=== PATIENT | male | born 1980 | race Caucasian/White ===

== ENCOUNTER 2020-10-31 10:26 | Observation (INO) ==
[~2020-10-31 10:26] MED LIST: diphenhydrAMINE Capsule 25 MG CAP PO SCH
--- NOTE | 2020-10-31 10:52 | Emergency Department Note ---
Impression & Plan Numbness and tingling of right arm, Brain fog, History of TIA (transient ischemic attack) ED Provider Note NAME: VAMSI OLIVAREZ AGE: 40 SEX: M : 1980 ARRIVES VIA: Walk-In INFORMANT: Patient, ED PROVIDER(S): Frankie Andino MD Chief Complaint: Fogginess, numbness HPI: Patient does present with the above complaints that began around 9 AM this morning. The patient states he was driving and felt a "fogginess over him." Patient also describes some decrease sensation in his right upper extremity. Patient does have a prior history of TIAs and does take a baby aspirin daily. No recent falls or trauma. Patient denies any headache chest pains. The patient has had some intermittent shortness of breath on occasion. Patient denies any cough or fever or loss of taste or smell. The patient is vaccinated for Covid. Patient denies any lower extremity swelling. The patient states that it with his prior TIAs he had some tongue numbness and some changes in feeling in his right upper extremity. The patient is right-hand dominant. The patient denies any recent overuse or trauma to the right upper extremity. The patient denies any bowel or bladder incontinence or saddle anesthesia. No history of seizures. Patient denies any alcohol or tobacco use. The patient symptoms have been constant since they began. Patient did present as a stroke alert in triage. ROS: See HPI for pertinent positives and negatives. A total of 10 systems were reviewed and otherwise negative. Past medical history: See below Surgical history: See below Social history: See below Physical Exam: GENERAL: Lying supine in the bed, eyes closed, opens eyes to voice. EYE EXAM: Normal conjunctiva. PERRL, no anisocoria and EOM's grossly intact w/o pain. NECK: Supple, no nuchal rigidity, no adenopathy, non-tender. No signs of meningismus. LUNGS: Clear to auscultation. Normal chest wall mechanics. HEART: NSR, no MRG. ABDOMEN: Abdomen soft, non-tender, normo-active bowel sounds, no masses, no rebound or guarding. BACK: No CVA TTP. SKIN: No rashes and no bruising. UPPER EXTREMITIES: Upper extremities are grossly normal. LOWER EXTREMITIES: Grossly normal, no edema. NEURO EXAM: A&O x3, cranial nerves II-XII grossly intact, normal speech, moves all 4 extremities on command w/o issue. [Good finger to nose, no drift, reported decreased sensation over the posterior ulnar aspect of the right hand. Differential diagnoses: Infection, dehydration, metabolic abnormality, hypo/hyperglycemia, electrolyte disturbance, anemia, hypoxia, cardiac sources, intracerebral event, toxicologic, neurologic, as well as other pathologies. Course: Patient was seen and evaluated the bedside. Full history physical exam was p erformed. EKG interpreted by me Normal sinus rhythm, rate of 85, normal intervals, normal axis, no ST changes. Imaging Studies: See below Cardiac monitoring: An order was placed for continuous cardiac monitoring. The monitor shows a rate of 75 with sinus rhythm. MDM: Patient did present with right upper extremity numbness and tongue numbness. NIH of 1. No focal weakness slurred speech or facial droop. The patient states it is similar to his TIA. Patient does have history of migraine but no visual disturbances or headache. Blood work was unremarkable. CT of the head negative. Patient does have a contrast allergy so angiographies were not ordered. Upon reassessment the patient has had no change in symptoms. I did give the on-call hospitalist Dr. Rothman and the patient was admitted to the medicine service. The patient did take his typical baby aspirin this morning and is on a statin medication which he took last night. Chest x-ray is clear. EKG without obvious arrhythmia. Critical Care: I have personally spent 35 minutes of critical care time in direct management of this patient. This includes bedside care, interpretation of diagnostic studies, and testing, discussion with consultants, patient, and family members, and other require inpatient management activities. This 35 minutes is in excess of all separately billable procedures. Past Med/Surg History Medical History (Updated 10/31/20 @ 12:23 by Frankie Andino MD) Migraine TIA (transient ischemic attack) Surgical History (Updated 10/31/20 @ 12:23 by Frankie Andino MD) No pertinent past surgical history Social History Smoking Status: Never smoker Feels Safe at Home: Yes Results & Data (ED) Vital Signs Vital Signs - 24 hr 10/31/20 10:32 10/31/20 10:48 10/31/20 10:54 Temperature 36.7 C Temperature Source Temporal Artery Scan Pulse Rate 75 85 82 Pulse Rate from SpO2 Sensor 85 83 Respiratory Rate 18 Respiratory Effort / Characteristics Non-Labored Respiratory Depth Normal Blood Pressure 168/105 H 158/96 H Blood Pressure Mean 126 116 Pulse Oximetry 99 98 99 Oxygen Delivery Method Sepsis Recent Fever Within 48 Hours No Sepsis New/Unexplained Change in Mental Status No Sepsis Action Taken by Nursing No Action Required 10/31/20 11:00 10/31/20 11:02 10/31/20 11:13 Temperature Temperature Source Pulse Rate 73 75 73 Pulse Rate from SpO2 Sensor 74 75 73 Respiratory Rate Respiratory Effort / Characteristics Respiratory Depth Blood Pressure 135/74 137/82 Blood Pressure Mean 94 100 Pulse Oximetry 96 96 94 Oxygen Delivery Method Room Air Sepsis Recent Fever Within 48 Hours Sepsis New/Unexplained Change in Mental Status Sepsis Action Taken by Nursing 10/31/20 11:15 10/31/20 11:30 10/31/20 11:45 Temperature Temperature Source Pulse Rate 71 68 71 Pulse Rate from SpO2 Sensor 73 69 72 Respiratory Rate Respiratory Effort / Characteristics Respiratory Depth Blood Pressure 133/81 135/81 132/80 Blood Pressure Mean 98 99 97 Pulse Oximetry 94 93 96 Oxygen Delivery Method Sepsis Recent Fever Within 48 Hours Sepsis New/Unexplained Change in Mental Status Sepsis Action Taken by [facility]sp Medications Current Medication List: was personally reviewed by me Laboratory Data Attestation: I reviewed the patient's lab results. Result diagrams: 10/31/20 10:57 10/31/20 10:57 Lab Results 10/31/20 10/31/20 10/31/20 Range/Units 10:49 10:57 10:57 WBC 6.28 (4.8-10.8) K/uL RBC 5.35 (4.7-6.1) M/uL Hgb 16.5 (14.0-18.0) g/dL Hct 47.2 (42-52) % MCV 88.2 (80-100) fL MCH 30.8 (25-34) pg MCHC 35.0 (32-36) g/dL RDW Std Deviation 40.8 (36.4-46.3) fL RDW Coeff of Sulaiman 12.8 (11.5-14.5) % Plt Count 257 (130-400) K/uL MPV 10.4 (7.4-10.4) fL Immature Gran % (Auto) 0.3 % Neut % (Auto) 62.9 % Lymph % (Auto) 28.0 % Nolan % (Auto) 8.1 % Eos % (Auto) 0.5 % Baso % (Auto) 0.2 % Neut # (Auto) 3.95 (1.4-6.5) K/uL Lymph # (Auto) 1.76 (1.2-3.4) K/uL Nolan # (Auto) 0.51 (0.11-0.59) K/uL Eos # (Auto) 0.03 (0-0.5) K/uL Baso # (Auto) 0.01 (0-0.2) K/uL Immature Gran # (Auto) 0.02 (0.00-0.02) K/uL PT 9.8 (9.0-12.0) Seconds INR 1.0 (0.9-1.1) APTT 25.6 (21.0-31.0) Seconds PTT Ratio 1.0 Sodium (136-145) mmol/L Potassium (3.5-5.1) mmol/L Chloride (98-107) mmol/L Carbon Dioxide (21-32) mmol/L Anion Gap (3-11) BUN (7-18) mg/dl Creatinine (0.6-1.4) mg/dl Est Cr Clr Drug Dosing ml/min Est GFR ( Amer) ml/min Est GFR (Non-Af Amer) ml/min BUN/Creatinine Ratio (10-20) Glucose (70-99) mg/dl POC Glucose 101 H (70-99) mg/dl Calcium (8.5-10.1) mg/dl Magnesium (1.8-2.4) mg/dl Total Bilirubin (0.2-1) mg/dl AST (15-37) U/L ALT (12-78) U/L Alkaline Phosphatase (45-117) U/L Troponin I (0-0.045) ng/ml Total Protein (6.4-8.2) gm/dl Albumin (3.4-5.0) gm/dl Globulin (2.5-4.0) gm/dl Albumin/Globulin Ratio (0.9-2) Blood Type Antibody Screen 10/31/20 10/31/20 Range/Units 10:57 10:57 WBC (4.8-10.8) K/uL RBC (4.7-6.1) M/uL Hgb (14.0-18.0) g/dL Hct (42-52) % MCV (80-100) fL MCH (25-34) pg MCHC (32-36) g/dL RDW Std Deviation (36.4-46.3) fL RDW Coeff of Sulaiman (11.5-14.5) % Plt Count (130-400) K/uL MPV (7.4-10.4) fL Immature Gran % (Auto) % Neut % (Auto) % Lymph % (Auto) % Nolan % (Auto) % Eos % (Auto) % Baso % (Auto) % Neut # (Auto) (1.4-6.5) K/uL Lymph # (Auto) (1.2-3.4) K/uL Nolan # (Auto) (0.11-0.59) K/uL Eos # (Auto) (0-0.5) K/uL Baso # (Auto) (0-0.2) K/uL Immature Gran # (Auto) (0.00-0.02) K/uL PT (9.0-12.0) Seconds INR (0.9-1.1) APTT (21.0-31.0) Seconds PTT Ratio Sodium 139 (136-145) mmol/L Potassium 4.3 (3.5-5.1) mmol/L Chloride 107 (98-107) mmol/L Carbon Dioxide 29 (21-32) mmol/L Anion Gap 3.0 (3-11) BUN 13 (7-18) mg/dl Creatinine 1.16 (0.6-1.4) mg/dl Est Cr Clr Drug Dosing 117.1 ml/min Est GFR ( Amer) 89.5 ml/min Est GFR (Non-Af Amer) 77.2 ml/min BUN/Creatinine Ratio 11.2 (10-20) Glucose 102 H (70-99) mg/dl POC Glucose (70-99) mg/dl Calcium 9.4 (8.5-10.1) mg/dl Magnesium 2.3 (1.8-2.4) mg/dl Total Bilirubin 0.7 (0.2-1) mg/dl AST 26 (15-37) U/L ALT 53 (12-78) U/L Alkaline Phosphatase 44 L (45-117) U/L Troponin I < 0.015 (0-0.045) ng/ml Total Protein 8.0 (6.4-8.2) gm/dl Albumin 4.3 (3.4-5.0) gm/dl Globulin 3.7 (2.5-4.0) gm/dl Albumin/Globulin Ratio 1.2 (0.9-2) Blood Type A Positive Antibody Screen NEGATIVE Imaging Data Radiologist's Impression: Chest X-Ray 10/31/20 10:35 XR chest 1V portable CLINICAL HISTORY: stroke alert COMPARISON STUDY: No previous studies for comparison. FINDINGS: Lung volumes are at the lower limits of normal. There is no pneumothorax or pleural effusion. Note is made of mild cardiomegaly without evidence for pulmonary edema. There is no consolidation. Azygos fissure is incidentally noted. Patient is mildly rotated. IMPRESSION: No acute cardiopulmonary findings. ACT 112: Negative or not required by law. Electronically signed by: Oliver Hernandez M.D. 10/31/2020 11:[address] 10/31/20 10:35 CT SCAN OF THE BRAIN WITHOUT IV CONTRAST CLINICAL HISTORY: Strokelike symptoms. COMPARISON STUDY: No priors. TECHNIQUE: Unenhanced axial CT scan of the brain is performed from the vertex to the skull base. A dose lowering technique was utilized adhering to the principles of ALARA. CT DOSE: 729.78 mGycm FINDINGS: Brain parenchyma: The brain parenchyma is normal in appearance. There is no hemorrhage, mass effect, or evidence of acute territorial ischemia by CT criteria. Purdy-white matter differentiation is preserved. No extra-axial fluid collection is seen. Ventricles, sulci, cisterns: Normal in configuration. Intracranial vasculature: The visualized intracranial vasculature at the skull base is normal in appearance. Calvarium: Unremarkable. Sinuses and mastoids: A 1.4 cm retention cyst is noted in the left maxillary antrum. The remaining visualized paranasal sinuses are clear. The mastoid air cells are well pneumatized. Orbits: The bony orbits are grossly intact. IMPRESSION: There is no hemorrhage, mass effect, or evidence of acute territorial ischemia by CT criteria. ACT 112: Negative or not required by law. Electronically signed by: Sadi Pham M.D. 10/31/2020 11:02 AM Discharge Plan Visit Data Chief Complaint: Neuro Symptoms/Deficit Stated Complaint: NUMBNESS TO RIGHT SIDE OF BODY,DIZZY,MIND CLOUDY ED Provider: Frankie Andino Discharge Problem: Numbness and tingling of right arm, Brain fog, History of TIA (transient ischemic attack) Forms Stand Alone Forms: [facility]
--- NOTE | 2020-10-31 11:03 | CT Scan Report ---
CT SCAN OF THE BRAIN WITHOUT IV CONTRAST CLINICAL HISTORY: Strokelike symptoms. COMPARISON STUDY: No priors. TECHNIQUE: Unenhanced axial CT scan of the brain is performed from the vertex to the skull base. A d ose lowering technique was utilized adhering to the principles of ALARA. CT DOSE: 729.78 mGycm FINDINGS: Brain parenchyma: The brain parenchyma is normal in appearance. There is no hemorrhage, mass effect, or evidence of acute territorial ischemia by CT criteria. Purdy-white matter differentiation is preser clement. No extra-axial fluid collection is seen. Ventricles, sulci, cisterns: Normal in configuration. Intracranial vasculature: The visualized intracranial vasculature at the skull base is normal in appe arance. Calvarium: Unremarkable. Sinuses and mastoids: A 1.4 cm retention cyst is noted in the left maxillary antrum. The remaining vi sualized paranasal sinuses are clear. The mastoid air cells are well pneumatized. Orbits: The bony orbits are grossly intact. IMPRESSION: There is no hemorrhage, mass effect, or evidence of acute territorial ischemia by CT james kingsley. ACT 112: Negative or not required by law. Electronically signed by: Sadi Pham M.D. 10/31/2020 11:02 AM
[2020-10-31 11:08] LABS: Basophils # (auto) 0.01 K/uL (0-0.2); Basophils % (auto) 0.2 %; Eosinophils # (auto) 0.03 K/uL (0-0.5); Eosinophils % (auto) 0.5 %; Hematocrit (blood only) 47.2 % (42-52); Hemoglobin 16.5 g/dL (14.0-18.0); Immature Granulocytes # (auto) 0.02 K/uL (0.00-0.02); Immature Granulocytes % (auto) 0.3 %; Lymphocytes # (auto) 1.76 K/uL (1.2-3.4); Mean Corpuscular Hemoglobin 30.8 pg (25-34); Mean Corpuscular Volume 88.2 fL (80-100); Mean Platelet Volume 10.4 fL (7.4-10.4); Monocytes # (auto) 0.51 K/uL (0.11-0.59); Monocytes % (auto) 8.1 %; Neutrophils # (auto) 3.95 K/uL (1.4-6.5); Neutrophils % (auto) 62.9 %; Platelet Count 257 K/uL (130-400); RDW Coefficient of Variation 12.8 % (11.5-14.5); RDW Standard Deviation 40.8 fL (36.4-46.3); Red Blood Count 5.35 M/uL (4.7-6.1); White Blood Count 6.28 K/uL (4.8-10.8)
[2020-10-31 11:18] LABS: Partial Thromboplastin Time 25.6 Seconds (21.0-31.0); Prothrombin Time 9.8 Seconds (9.0-12.0)
[2020-10-31 11:24] LABS: Alanine Aminotransferase 53 U/L (12-78); Albumin Level 4.3 gm/dl (3.4-5.0); Aspartate Aminotransferase 26 U/L (15-37); BUN Creatinine Ratio 11.2 (10-20); Blood Urea Nitrogen 13 mg/dl (7-18); Calcium 9.4 mg/dl (8.5-10.1); Carbon Dioxide 29 mmol/L (21-32); Chloride 107 mmol/L (98-107); Creatinine Clr Calc Pharmacy 117.1 ml/min; Est GFR (African American) 89.5 ml/min; Est GFR (Non-African American) 77.2 ml/min; Glucose 102 mg/dl (70-99); Magnesium 2.3 mg/dl (1.8-2.4); Potassium 4.3 mmol/L (3.5-5.1); Sodium 139 mmol/L (136-145)
[2020-10-31 11:29] LABS: Albumin Globulin Ratio 1.2 (0.9-2); Alkaline Phosphatase 44 U/L (45-117); Bilirubin,Total 0.7 mg/dl (0.2-1); Globulin 3.7 gm/dl (2.5-4.0); Troponin I < 0.015 ng/ml (0-0.045)
--- NOTE | 2020-10-31 11:46 | XRay Report ---
XR chest 1V portable CLINICAL HISTORY: stroke alert COMPARISON STUDY: No previous studies for comparison. FINDINGS: Lung volumes are at the lower limits of normal. There is no pneumothorax or pleural effusio n. Note is made of mild cardiomegaly without evidence for pulmonary edema. There is no consolidation. Azygos fissure is incidentally noted. Patient is mildly rotated. IMPRESSION: No acute cardiopulmonary findings. ACT 112: Negative or not required by law. Electronically signed by: Oliver Hernandez M.D. 10/31/2020 11:45 AM
--- NOTE | 2020-10-31 13:09 | History & Physical Report ---
Date of Service October 31, 2020 Assessment & Plan (1) Stroke: Stroke vs TIA - NIH 1- not tPA candidate second to time and NIH score - MRI/MRA head/brain and neck pending at this time - Incidentally noted to have COVID-19- ? inciting event - Continue ASA - Adjust statin in morning pending lipid panel - Bedside swallow screen passed - ECHO - Neurology consulted - PT/OT (2) COVID-19: Asymptomatic, no fevers, no dyspnea, not on oxygen- - Continue supportive measures - CVA needs to be ruled in or out prior to adjusting his VTE hypercoagulability risk - CRP, Fibrinogen, Ferritin for morning lab - No oxygen at this time, self rotation. (3) HLD (hyperlipidemia): As above, continue pravastatin 40 mg (4) HTN (hypertension): Hold PO medications including metoprolol - allow permissive HTN (5) Stomach ulcer: Patient reports some naseem in the past in which he had a EGD done that did not report any active bleeding, but they are following 3 areas - He was to have a repeat EGD in the near future - Battles with some constipation and Nausea - Continue PPI and carfate (6) DVT prophylaxis: Heparin 5000 units q12 until CVA ruled out SCDs ambulate in room History of Present Illness Primary Care Provider: NO PCP 40 YOM with past medical history of HTN, HLD, obesity, fatty liver, migraine, and TIA. Patient drove himself to the emergency room. [place] on [place] way to [place] this morning and around 0800 he started to experiencing "brain feeling foggy", and started noticing some tingling in to his right side of his face and tongue. This progressed to numbness. He was going to just go home, but then he started feeling the numbness in his right arm and his right leg. Patient was seen in the Emergency room and was stroke alerted in triage. Initial NIH was reported as 1, he had a CT scan of the head performed. No angiographies performed secondary to iodinated contrast allergy. He was deemed not a tPA candidate and the hospitalist service was notified. Incidentally during admitting process he was found to have a (+) COVID test. He received 1 dose of his vaccine in September. The patient continues to feel his numbness and tingling to his right side, his sensation to pin-prick is decreased on the right side: circumferentially up to knee on lower; decrease to pin prick to his right upper arm, circumferential, he also has some mild weakness to the right side. He will be admitted to continue his stroke work-up, he will get MRI/MRA of the head and neck for his CVA. Patient has had a CT scan with contrast in the past and despite pre- treatment with prednisone, famotidine, and Benadryl protocol, he reports that he had a breakthrough reaction. For his migraines, he normally gets an aura with these and has never had a debilitating migraine. He reports he hasn't had a migraine in a couple of years and is not on any abortive medications. He is being followed for benign liver lesions and fatty liver, work-up with PCP for iron deficiency anemia and melena. He is normally seen by [facility]. Allergies Allergy/AdvReac Type Severity Reaction Status Date / Time Iodinated Contrast Media Allergy Severe Anaphylaxis Unverified 10/31/20 13:42 amoxicillin Allergy Intermediate Hives Unverified 10/31/20 13:42 iodine Allergy Intermediate Throat Unverified 10/31/20 13:42 Swelling Home Medications Medication Instructions Recorded Confirmed Type Gi Cocktail 5 ml PO BID PRN 10/31/20 10/31/20 History amlodipine 10 mg PO QAM 10/31/20 10/31/20 History aspirin 81 mg PO QAM 10/31/20 10/31/20 History cholecalciferol (vitamin D3) 100 mcg PO PM 10/31/20 10/31/20 History [Vitamin D3] cyanocobalamin (vitamin B-12) 100 mcg PO PM 10/31/20 10/31/20 History [Vitamin B-12] diphenhydramine HCl [Benadryl] 50 mg PO Q6H PRN 10/31/20 10/31/20 History famotidine [Pepcid] 40 mg PO HS 10/31/20 10/31/20 History fluticasone propionate [Flonase 2 spray INTRANASAL BID PRN 10/31/20 10/31/20 History Allergy Relief] hyoscyamine sulfate 0.25 mg PO TID 10/31/20 10/31/20 History losartan 50 mg PO BID 10/31/20 10/31/20 History metoprolol succinate 25 mg PO BID 10/31/20 10/31/20 History multivit,calc,dlj-BG-G4-lycop 1 tab PO PM 10/31/20 10/31/20 History [One-A-Day Men's Complete] ondansetron 4 mg PO Q6H PRN 10/31/20 10/31/20 History pantoprazole 40 mg PO BID 10/31/20 10/31/20 History pravastatin 40 mg PO HS 10/31/20 10/31/20 History prochlorperazine maleate 10 mg PO TID PRN 10/31/20 10/31/20 History [Compazine] sucralfate [Carafate] 1 g PO TIDM 10/31/20 10/31/20 History venlafaxine [Effexor XR] 75 mg PO BID 10/31/20 10/31/20 History Past Med/Surg History Medical History (Updated 10/31/20 @ 20:38 by JAIME Elena) Fatty liver HLD (hyperlipidemia) HTN (hypertension) Liver lesion Migraine Stomach ulcer TIA (transient ischemic attack) Surgical History (Updated 10/31/20 @ 13:37 by JAIME Elena) History of esophagogastroduodenoscopy (EGD) No pertinent past surgical history Family History (Updated 10/31/20 @ 13:41 by JAIME Elena) Other COPD (chronic obstructive pulmonary disease) Cancer Coronary heart disease Dyslipidemia Hypertension Social History Smoking Status: Never smoker Feels Safe at Home: Yes Review of Systems Review of Systems: REVIEW OF SYSTEMS: Constitutional: No fever, sweats or chills Eyes: No diplopia, no worsening or blurred vision ENT: normal hearing, no trouble swallowing Respiratory: No cough, sputum, dyspnea at rest or on exertion Cardiovascular: No chest pain, tightness or palpitations Abdomen: No pain, nausea, vomiting, diarrhea or constipation Musculoskeletal: (+) weakness, No joint pain, calf pain, swelling Neurologic: (+) numbness/tingling, or (+) balance problems Psychiatric: No anxiety or depression Skin: No rash or itch Physical Exam Physical Exam: PHYSICAL EXAM: General: awake, alert, no apparent distress Head: Normocephalic, atraumatic ENT: PERRL, EOMI, no pharyngeal exudate, mucous membranes moist Neuro: NIH-1 AAO x 3, speech clear and appropriate, PEERLA, no vision deficits, right upper and lower extremities 4/5, left upper and lower extremities 3/5, sensation decreased on the right side circumferential to upper outer chest and on lower extremity to just below the knee. No coordination deficits, and no ataxia. Normal Babinski, and no clonus. No facial asymmetry or dysarthria/aphasia. Chest: equal rise and fall of the chest, no accessory muscle use, no heaves or thrills, Clear to auscultation, on room air, Cardiac: Regular rate and rhythm, telemetry reviewed, skin warm dry, cap refill <3 seconds, peripheral pulses +2 no JVD, no murmur, no edema GI: NABS x 4 quadrants, soft, nontender to palpation, no rebound, guarding or tenderness : Spontaneously voiding, no pain, no CVA tenderness, Extremities: Normal inspection, calfs nontender to palpation Psych: Normal mood and affect Skin: no rash or erythema Results & Data Results & Data ([facility]) Vital Signs (Past 12 Hours) Vital Signs Temp Pulse Resp BP Pulse Ox 10/31/20 11:45 71 132/80 96 10/31/20 11:30 68 135/81 93 10/31/20 11:15 71 133/81 94 10/31/20 11:13 73 137/82 94 10/31/20 11:02 75 135/74 96 10/31/20 11:00 73 96 10/31/20 10:54 82 99 10/31/20 10:48 85 158/96 H 98 10/31/20 10:32 36.7 C 75 18 168/105 H 99 Laboratory Results Abnormal lab results 10/31/20 10/31/20 Range/Units 10:49 10:57 Glucose 102 H (70-99) mg/dl POC Glucose 101 H (70-99) mg/dl Alkaline Phosphatase 44 L (45-117) U/L Diagnostic Findings Chest X-Ray 10/31/20 10:35 XR chest 1V portable CLINICAL HISTORY: stroke alert COMPARISON STUDY: No previous studies for comparison. FINDINGS: Lung volumes are at the lower limits of normal. There is no pneumothorax or pleural effusion. Note is made of mild cardiomegaly without evidence for pulmonary edema. There is no consolidation. Azygos fissure is incidentally noted. Patient is mildly rotated. IMPRESSION: No acute cardiopulmonary findings. ACT 112: Negative or not required by law. Electronically signed by: Oliver Hernandez M.D. 10/31/2020 11:[address] 10/31/20 10:35 CT SCAN OF THE BRAIN WITHOUT IV CONTRAST CLINICAL HISTORY: Strokelike symptoms. COMPARISON STUDY: No priors. TECHNIQUE: Unenhanced axial CT scan of the brain is performed from the vertex to the skull base. A dose lowering technique was utilized adhering to the principles of ALARA. CT DOSE: 729.78 mGycm FINDINGS: Brain parenchyma: The brain parenchyma is normal in appearance. There is no hemorrhage, mass effect, or evidence of acute territorial ischemia by CT criteria. Purdy-white matter differentiation is preserved. No extra-axial fluid collection is seen. Ventricles, sulci, cisterns: Normal in configuration. Intracranial vasculature: The visualized intracranial vasculature at the skull base is normal in appearance. Calvarium: Unremarkable. Sinuses and mastoids: A 1.4 cm retention cyst is noted in the left maxillary antrum. The remaining visualized paranasal sinuses are clear. The mastoid air cells are well pneumatized. Orbits: The bony orbits are grossly intact. IMPRESSION: There is no hemorrhage, mass effect, or evidence of acute territorial ischemia by CT criteria. Electronically signed by: Sadi Pham M.D. 10/31/2020 11:02 AM Medications Administered Active Medications Aspirin (Aspirin 81 Mg Ectab) 81 mg PO QAM [facility] Stop: 12/01/20 08:59 Active Medications Aspirin (Aspirin 81 Mg Ectab) 81 mg PO QAM [facility] Stop: 12/01/20 08:59 ECG Additional Comments: Normal sinus rhythm Nonspecific T wave abnormality Abnormal ECG Code Status & VTE Plan Code Status CODE: FULL VTE: heparin 5000 TID VTE Prophylaxis Plan VTE Prophylaxis will be ordered: Yes Supervising Physician Co-Signing Physician Notes Patient was seen and examined independently I discussed the case with Ac SANDOVAL I reviewed pertinent past medical social family history and also the plan of care and agree with the plan of care. Patient presented with nondescript neurological symptoms of "brain fog" and some right-sided weakness. Incidentally he is found to be Covid positive. Retrospectively the patient may have had some loss of taste or smell few weeks prior to presentation. He has no pulmonary symptoms at present and he is 94% on room air greater with his oxygenation. 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 I did see the patient emergency department his hand and foot weakness are slight if any he has no dysmetria he had no changes in his speech Continue with stroke work-up versus atypical migraine incidental Covid diagnosis will be kept with isolation not initiating any steroids at this time Any exceptions will be noted below PG Care Time/CCT Total # of Minutes Spent Total Time Spent with Patient: Total time spent is greater than 50% in coordination of care (as documented) at patient's floor/unit and/or counseling patient: Coding Level of Care Code 09566 Initial Inpt Care Lvl 3 Diagnoses Stroke I63.9 CVA mechanism: unspecified COVID-19 U07.1 HLD (hyperlipidemia) E78.5 Hyperlipidemia type: unspecified HTN (hypertension) I10 Hypertension type: unspecified Stomach ulcer K25.7 Gastric ulcer chronicity: chronic Gastric ulcer complication status: without hemorrhage or perforation DVT prophylaxis Z29.9 (1) HLD (hyperlipidemia) Hyperlipidemia type: unspecified Qualified Code(s): E78.5 - Hyperlipidemia, unspecified (2) Stomach ulcer Gastric ulcer chronicity: chronic Gastric ulcer complication status: without hemorrhage or perforation Qualified Code(s): K25.7 - Chronic gastric ulcer without hemorrhage or perforation (3) HTN (hypertension) Hypertension type: unspecified Qualified Code(s): I10 - Essential (primary) hypertension (4) Stroke CVA mechanism: unspecified Qualified Code(s): I63.9 - Cerebral infarction, unspecified
[2020-10-31] MEDS ORDERED: PERFLUTREN LIPID MICROSPHERE (DEFINITY) IV ONE (15:04)
--- NOTE | 2020-10-31 16:25 | XCELERA ---
[id number] \\[id number]
[2020-10-31] MEDS ORDERED: predniSONE 50 MG TAB PO SCH (18:00)
[2020-10-31] MEDS ORDERED: SUCRALFATE 1 GM TAB PO SCH (18:20)
[2020-10-31] MEDS ORDERED: FLUTICASONE PROPIONATE NA SPR 16 GM BTL PRN (18:20)
[2020-10-31] MEDS ORDERED: PHARMACIST DISCHARGE MED REC CONSULT PRN (18:20)
[2020-10-31] MEDS ORDERED: POLYETHYLENE (MIRALAX) 17 GM PACK PO PRN (18:20)
[2020-10-31] MEDS ORDERED: ONDANSETRON INJ 2 MG/ML 2 ML VIAL IV PRN (18:20)
--- NOTE | 2020-10-31 18:41 | Electrocardiogram Report ---
Test Reason : Blood Pressure : / mmHG Vent. Rate : 085 BPM Atrial Rate : 085 BPM P-R Int : 148 ms QRS Dur : 092 ms QT Int : 364 ms P-R-T Axes : 007 052 012 degrees QTc Int : 433 ms Normal sinus rhythm Nonspecific T wave abnormality Abnormal ECG No previous ECGs available Confirmed by Yao Quiroga ([id number]) on 10/31/2020 6:40:52 PM Referred By: Confirmed By:Kelvin Quiroga
[2020-10-31] MEDS: SUCRALFATE 1 GM TAB PO SCH ×2 (20:07→23:53)
[2020-10-31] MEDS: HEPARIN SOD 5,000 UNIT/0.5 ML VIAL SQ SCH (20:09)
[2020-10-31] MEDS: PANTOprazole 40 MG TAB PO SCH (20:10)
[2020-10-31] MEDS: ACETAMINOPHEN 325 MG TAB PO PRN (20:11)
[2020-10-31] MEDS: VENLAFAXINE HCL XR 75 MG CAPXR PO SCH (20:12)
[2020-10-31] MEDS ORDERED: ALUMINUM/MAGNESIUM SUSP 72 ML, LIDOCAINE VISCOUS 2% SOLN 24 ML, BARCODE IDENTIFIER 1 EACH PO PRN (20:52)
[2020-10-31] MEDS ORDERED: CYANOCOBALAMIN (B-12) 100 MCG TABLET PO SCH (21:00)
[2020-10-31] MEDS ORDERED: PRAVASTATIN SOD 40 MG TAB PO SCH (21:00)
[2020-10-31] MEDS ORDERED: FAMOTIDINE 40 MG TABLET PO SCH (21:00)
[2020-10-31] MEDS ORDERED: HYOSCYAMINE SULFATE 0.125 MG TAB PO SCH (21:00)
[2020-10-31 21:28] LABS: Fibrinogen 421 mg/dl (184-400)
[2020-10-31] MEDS ORDERED: GADOBUTROL 65ML VIAL IV ONE (23:29)
[2020-11-01] MEDS ORDERED: predniSONE 50 MG TAB PO SCH (02:00)
[2020-11-01] MEDS ORDERED: diphenhydrAMINE Capsule 25 MG CAP PO SCH (05:00)
[2020-11-01] MEDS ORDERED: FAMOTIDINE 20 MG TAB PO SCH (05:00)
--- NOTE | 2020-11-01 07:14 | Magnetic Resonance Report ---
MR ANGIOGRAM OF THE NECK COMBO CLINICAL HISTORY: Strokelike symptoms. COMPARISON STUDY: No priors. TECHNIQUE: Axial 3-D [id number] MR angiography of the neck is performed. Subsequently, following the IV administration of 14 cc of Gadavist. Coronal MR angiogram of the neck was performed to corrobo rate the findings. 3-D reformats are created and assessed. All measurements were calculated based on NASCET criteria. FINDINGS: Visualized portions of the thoracic aorta are normal in caliber. The aortic arch demonstrat es standard 3-vessel anatomy. The subclavian arteries are widely patent bilaterally. The right common carotid artery is widely patent, as are the right internal and external carotid arteries. The left c ommon carotid artery is widely patent, as are the left internal and external carotid arteries. The ve rtebral arteries are widely patent. The right vertebral artery is dominant. The visualized intracrani al vessels at the skull base appear patent. IMPRESSION: Normal MR angiogram of the neck. ACT 112: Negative or not required by law. Electronically signed by: Sadi Pham M.D. 11/01/2020 7:13 AM
[2020-11-01 07:36] LABS: Basophils # (auto) 0.01 K/uL (0-0.2); Basophils % (auto) 0.2 %; Eosinophils # (auto) 0.07 K/uL (0-0.5); Eosinophils % (auto) 1.1 %; Hematocrit (blood only) 46.2 % (42-52); Immature Granulocytes # (auto) 0.02 K/uL (0.00-0.02); Immature Granulocytes % (auto) 0.3 %; Lymphocytes # (auto) 1.72 K/uL (1.2-3.4); Lymphocytes % (auto) 26.7 %; Mean Corpuscular Hemoglobin 30.5 pg (25-34); Mean Corpuscular Hgb Conc 34.6 g/dL (32-36); Mean Platelet Volume 10.5 fL (7.4-10.4); Monocytes % (auto) 7.8 %; Neutrophils # (auto) 4.11 K/uL (1.4-6.5); Neutrophils % (auto) 63.9 %; Platelet Count 228 K/uL (130-400); RDW Coefficient of Variation 12.7 % (11.5-14.5); RDW Standard Deviation 40.4 fL (36.4-46.3); Red Blood Count 5.25 M/uL (4.7-6.1); White Blood Count 6.43 K/uL (4.8-10.8)
--- NOTE | 2020-11-01 08:03 | Magnetic Resonance Report ---
MR brain wo con HISTORY: 40 years-old Male stroke work up, allergy to iodinated contrast acute strokelike symptoms COMPARISON: Head CT of same day TECHNIQUE: Multiplanar multisequence MRI of the brain was obtained without the use of IV contrast. FINDINGS: Construction Laborer localizer images demonstrate no gross extracranial abnormality. No restricted diffusion to sugg est acute or subacute infarct. No pathologic blooming artifact. There is no acute intracranial hemorr warren, midline shift, abnormal extra-axial collection, hydrocephalus or intracranial mass. Signal with in the brain parenchyma is within normal limits. The cerebral venous sinuses and major arterial flow voids are patent. Small mastoid effusions. The paranasal sinuses are clear. The skull, orbits and sof t tissues are unremarkable. IMPRESSION: No acute intracranial abnormality, specifically there is no acute or subacute infarct. ACT 112: Negative or not required by law. The above report was generated using voice recognition software. It may contain grammatical, syntax o r spelling errors. Electronically signed by: Higinio Moura M.D. 11/01/2020 8:01 AM
[2020-11-01 08:09] LABS: BUN Creatinine Ratio 11.7 (10-20); Calcium 9.4 mg/dl (8.5-10.1); Creatinine Clr Calc Pharmacy 121.6 ml/min; Est GFR (African American) 94.4 ml/min; Est GFR (Non-African American) 81.5 ml/min; Magnesium 2.3 mg/dl (1.8-2.4); Potassium 3.8 mmol/L (3.5-5.1)
[2020-11-01 08:13] LABS: Ferritin 69.3 ng/ml (8-388)
[2020-11-01 08:17] LABS: C Reactive Protein 0.85 mg/dl (0-0.29)
[2020-11-01 08:26] LABS: Estimated Average Glucose 91 mg/dl; Hemoglobin A1C 4.8 % (4.5-5.6)
[2020-11-01] MEDS: SUCRALFATE 1 GM TAB PO SCH ×2 (08:48→12:37)
[2020-11-01] MEDS: VENLAFAXINE HCL XR 75 MG CAPXR PO SCH (08:49)
[2020-11-01] MEDS: PANTOprazole 40 MG TAB PO SCH (08:49)
[2020-11-01] MEDS: HEPARIN SOD 5,000 UNIT/0.5 ML VIAL SQ SCH (08:50)
[2020-11-01] MEDS: ACETAMINOPHEN 325 MG TAB PO PRN (08:53)
[2020-11-01] MEDS ORDERED: ASPIRIN 81 MG ECTAB PO SCH (09:00)
--- NOTE | 2020-11-01 10:16 | Neurology Consultation ---
Date of Consultation November 01, 2020 Assessment & Plan (1) Complicated migraine: I suspect this patient experienced a complicated migraine. He has an intact neurological examination and unremarkable neuro imaging. He has a history of similar migrainous episodes in the past and has been following with a neurologist in [place] for this issue. He is no longer taking topiramate, however, due to some probable cognitive side effects he had been experiencing. He has not had a significant migrainous episode in quite some time, however. I do not think he needs to restart migraine preventive therapy acutely. He may follow-up with his usual neurologist for this issue. Of course, however, I am unable to completely exclude the possibility of a TIA localizing to the left cerebral hemisphere as an alternative explanation for his presentation. He does have some stroke risk factors including hypertension and hyperlipidemia. He is already on several antihypertensives and daily low-dose aspirin and should continue with these treatments. I do not see a compelling reason to switch from aspirin to clopidogrel at this time. Would consider obtaining 30-day mobile cardiac outpatient telemetry to exclude atrial fibrillation. Follow-up with the radiologist's interpretation of this patient's head MRA as well, report appears to be pending at this time. Per my review, the left vertebral artery is diminutive. There are no major vascular lesions. The middle, anterior and posterior cerebral arteries appear to be patent. No further immediate recommendations. 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 He was driving alone when he suddenly felt somewhat lightheaded and confused and noted difficulty grasping the steering wheel with his right hand. He experienced some associated numbness and tingling affecting the right arm and leg as well, especially the foot. He then developed a low-grade headache. His right-sided weakness and numbness have considerably improved this morning. He still has a low-grade headache. He does relay a history of high-frequency migraine and has been following with a neurologist in [place]. He had previously been on topiramate although had tapered off this medication about 8 months ago due to some associated cognitive difficulty. In spite of tapering off topiramate, however, his migraines have been relatively stable. He indicates that he is experienced unilateral numbness and tingling with his migraines in the past and recalls having negative MRI evaluations previously. He does state that his current symptoms seemed a little different from his usual migraines. He also indicates that he received his first Pfizer COVID-19 vaccination this past September. He then developed anosmia a few weeks after this vaccination and has been experiencing some dizziness as well. He had a second COVID-19 vaccination earlier this month, and now it looks like he has been diagnosed with actual COVID-19 infection. He does not have any active respiratory symptoms but continues to report some anosmia. He has undergone extensive neuroimaging including CT of the head, MRI of the brain, and MRA of the head and neck. The studies are unremarkable, no evidence of hem orrhage acute or subacute stroke. No significant vascular lesion. The right vertebral artery is dominant. I reviewed the images as well as the radiologist's interpretation of these tests. Allergies Allergy/AdvReac Type Severity Reaction Status Date / Time Iodinated Contrast Media Allergy Severe Anaphylaxis Unverified 10/31/20 13:42 amoxicillin Allergy Intermediate Hives Unverified 10/31/20 13:42 iodine Allergy Intermediate Throat Unverified 10/31/20 13:42 Swelling Home Medications Medication Instructions Recorded Confirmed Type Gi Cocktail 5 ml PO BID PRN 10/31/20 10/31/20 History amlodipine 10 mg PO QAM 10/31/20 10/31/20 History aspirin 81 mg PO QAM 10/31/20 10/31/20 History cholecalciferol (vitamin D3) 100 mcg PO PM 10/31/20 10/31/20 History [Vitamin D3] cyanocobalamin (vitamin B-12) 100 mcg PO PM 10/31/20 10/31/20 History [Vitamin B-12] diphenhydramine HCl [Benadryl] 50 mg PO Q6H PRN 10/31/20 10/31/20 History famotidine [Pepcid] 40 mg PO HS 10/31/20 10/31/20 History fluticasone propionate [Flonase 2 spray INTRANASAL BID PRN 10/31/20 10/31/20 History Allergy Relief] hyoscyamine sulfate 0.25 mg PO TID 10/31/20 10/31/20 History losartan 50 mg PO BID 10/31/20 10/31/20 History metoprolol succinate 25 mg PO BID 10/31/20 10/31/20 History multivit,calc,zmw-[id number]-lycop 1 tab PO PM 10/31/20 10/31/20 History [One-A-Day Men's Complete] ondansetron 4 mg PO Q6H PRN 10/31/20 10/31/20 History pantoprazole 40 mg PO BID 10/31/20 10/31/20 History pravastatin 40 mg PO HS 10/31/20 10/31/20 History prochlorperazine maleate 10 mg PO TID PRN 10/31/20 10/31/20 History [Compazine] sucralfate [Carafate] 1 g PO TIDM 10/31/20 10/31/20 History venlafaxine [Effexor XR] 75 mg PO BID 10/31/20 10/31/20 History Patient History Medical History Fatty liver HLD (hyperlipidemia) HTN (hypertension) Liver lesion Migraine Stomach ulcer TIA (transient ischemic attack) Surgical History History of esophagogastroduodenoscopy (EGD) No pertinent past surgical history Family History Other COPD (chronic obstructive pulmonary disease) Cancer Coronary heart disease Dyslipidemia Hypertension Social History Smoking Status: Never smoker Hx Alcohol Use: No Hx Substance Use: No Beliefs That Will Affect Care: None Current Living Situation: Spouse Feels Safe at Home: Yes Assistive Devices: Glasses Review of Systems Constitutional: no fever and no chills Eyes: no blind spots and no diplopia Ear, Nose, Mouth, Throat: no hearing loss Respiratory: no cough and no dyspnea Cardiovascular: no chest pain and no palpitations Gastrointestinal: no nausea and no vomiting Genitourinary: no dysuria Musculoskeletal: no myalgia Integumentary: no rash and no lesions Neurologic: as per Subjective / HPI and + headache(s); no tremor(s), no syncope and no memory loss Psychiatric: no depression and no anxiety Hematologic / Lymphatic: no easy bleeding and no easy bruising Exam (Neuro) Constitutional: well developed and well nourished; no acute distress Eyes: normal visual jaramillo by confrontation, PERRL, normal accommodation and EOM intact bilaterally; no nystagmus Ophthalmoscopic examination cannot be completed due to equipment limitations and need for personal protective equipment in the context of active COVID-19 status. Cardiovascular: Vessels: normal carotid upstroke; no carotid bruit Neurologic: Oriented to:: Person, Place and Time Memory: Short Term Intact and Remote Intact Attention: Span Intact and Concentration Intact Language: Naming Objects and Repeating Phrases Speech Fluency: negative Dysarthria Speech Aphasia: negative Aphasia Fund of Knowledge: Current Events, Past History and Vocabulary Cranial Nerves: Normal II (Visual jaramillo full to confrontation, visual acuity normal), III, IV, (Pupils equal round reactive to light and accommodation, eye movements normal), V (Facial sensation intact), VII (There is no facial droop or weakness), VIII (Hearing intact), IX, X (Palate elevates to midline), XI (Shoulder shrug intact) and XII (Tongue protrudes to midline) Motor Strength: Normal Lower Extremities and Normal Upper Extremities; negative Pronator Drift Motor Tone: Normal Lower Extremities and Normal Upper Extremities Muscle Bulk/Involuntary Movements: No Involuntary Movements; negative Muscle Atrophy Sensation: Light Touch Intact, Pain/Temperature Intact, Vibration Intact and Proprioception Intact Coordination: Normal; negative Limited Balance, Dysdiadochokinesia, Finger-Nose Abnormal and Heel-Mojica Abnormal Deep Tendon Reflexes: Rt Triceps: 2+, Lt Triceps: 2+, Rt Biceps: 2+, Lt Biceps: 2+, Rt Brachioradialis: 2+, Lt Brachioradialis: 2+, Rt Patellar: 2+, Lt Patellar: 2+, Rt Ankle: 2+ and Lt Ankle: 2+ Special Tests: negative Babinski Present Gait: Normal Station and Gait Results & Data ([facility]) Vital Signs (Past 12 Hours) Vital Signs Temp Pulse Pulse Resp BP Pulse Ox 11/01/20 08:25 36.8 C 60 19 148/98 H 91 11/01/20 05:35 88 15 99 11/01/20 04:00 36.6 C 62 20 130/76 97 11/01/20 01:58 60 12 96 11/01/20 00:00 77 10/31/20 23:00 36.7 C 68 18 142/82 H 92 Laboratory Results WBC 6.43, hemoglobin 16.0, hematocrit 46.2, platelet count 228, sodium 137, potassium 3.8, BUN 13, creatinine 1.11, hemoglobin A1c 4.8, magnesium 2.3, CRP 0.85, triglycerides 130, cholesterol 140, LDL 76, VLDL 26, HDL 38, SARS-CoV-[address] Findings [address] of the head, MRI of the brain, and MRA of the head and neck have been reviewed and are as described in the history of present illness. I reviewed the images as well as the radiologist's interpretation of these tests. An echocardiogram was technically limited, left ventricular systolic function normal. No interatrial shunt. Normal left atrial size. Coding Level of Care Code 60082 Inpt Consult Level 5 Diagnoses Complicated migraine G43.109
--- NOTE | 2020-11-01 10:44 | Magnetic Resonance Report ---
MR ANGIOGRAM OF THE BRAIN CLINICAL HISTORY: Strokelike symptoms. COMPARISON STUDY: MRI of the brain performed concurrently on 10/31/2020. TECHNIQUE: 3-D [id number] MR angiography of the intracranial circulation is performed. 3-D tumble views are created and assessed. IV contrast was not administered for this examination. FINDINGS: The internal carotid arteries are widely patent bilaterally, as are the anterior and middle cerebral arteries. The vertebrobasilar system and posterior cerebral arteries are widely patent. The right vertebral artery is dominant. There is no aneurysm, high-grade stenosis, or focal vessel cuto ff seen throughout the intracranial circulation. The brain parenchyma is normal as visualized. IMPRESSION: Unremarkable MR angiogram of the brain. ACT 112: Negative or not required by law. Electronically signed by: Sadi Pham M.D. 11/01/2020 10:42 AM
[2020-11-01] MEDS ORDERED: STROKE PATIENT DISCHARGE STA (13:15)
--- NOTE | 2020-11-07 21:46 | Discharge Summary ---
Date of Service November 01, 2020 Admission HPI Per Admitting Provider 40 YOM with past medical history of HTN, HLD, obesity, fatty liver, migraine, and TIA. Patient drove himself to the emergency room. He was on his way to court this morning and around 0800 he started to experiencing "brain feeling foggy", and started noticing some tingling in to his right side of his face and tongue. This progressed to numbness. He was going to just go home, but then he started feeling the numbness in his right arm and his right leg. Patient was seen in the Emergency room and was stroke alerted in triage. Initial NIH was reported as 1, he had a CT scan of the head performed. No angiographies performed secondary to iodinated contrast allergy. He was deemed not a tPA candidate and the hospitalist service was notified. Incidentally during admitting process he was found to have a (+) COVID test. He received 1 dose of his vaccine in September. The patient continues to feel his numbness and tingling to his right side, his sensation to pin-prick is decreased on the right side: circumferentially up to knee on lower; decrease to pin prick to his right upper arm, circumferential, he also has some mild weakness to the right side. He will be admitted to continue his stroke work-up, he will get MRI/MRA of the head and neck for his CVA. Patient has had a CT scan with contrast in the past and despite pre- treatment with prednisone, famotidine, and Benadryl protocol, he reports that he had a breakthrough reaction. For his migraines, he normally gets an aura with these and has never had a debilitating migraine. He reports he hasn't had a migraine in a couple of years and is not on any abortive medications. He is being followed for benign liver lesions and fatty liver, work-up with PCP for iron deficiency anemia and melena. He is normally seen by [facility]. Principal Diagnosis complicated migraine Discharge Exam General: awake, alert, no apparent distress Head: Normocephalic, atraumatic ENT: PERRL, EOMI, no pharyngeal exudate, mucous membranes moist Neuro: NIH-1 AAO x 3, speech clear and appropriate, PEERLA, no vision deficits, normal strength, sensation decreased on the right side circumferential to upper outer chest and on lower extremity to just below the knee. No coordination deficits, and no ataxia. Normal Babinski, and no clonus. No facial asymmetry or dysarthria/aphasia. Chest: equal rise and fall of the chest, no accessory muscle use, no heaves or thrills, Clear to auscultation, on room air, Cardiac: Regular rate and rhythm, telemetry reviewed, skin warm dry, cap refill <3 seconds, peripheral pulses +2 no JVD, no murmur, no edema GI: NABS x 4 quadrants, soft, nontender to palpation, no rebound, guarding or tenderness : Spontaneously voiding, no pain, no CVA tenderness, Extremities: Normal inspection, calfs nontender to palpation Psych: Normal mood and affect Skin: no rash or erythema Discharge Data Allergies Allergy/AdvReac Type Severity Reaction Status Date / Time Iodinated Contrast Media Allergy Severe Anaphylaxis Unverified 10/31/20 13:42 amoxicillin Allergy Intermediate Hives Unverified 10/31/20 13:42 iodine Allergy Intermediate Throat Unverified 10/31/20 13:42 Swelling Consultations 10/31/20 14:20 ED Decision to Admit Stat 10/31/20 18:20 Consult Neurology Routine Ordered Studies 10/31/20 10:35 CT head/brain wo con Stat 10/31/20 13:11 MR angio head wo con Routine 10/31/20 13:11 MR angio neck wo/w con Routine MR brain wo con Routine Hospital Course (1) Stroke: Stroke ruled out Appreciate input from Neuro: I suspect this patient experienced a complicated migraine. He has an intact neurological examination and unremarkable neuro imaging. He has a history of similar migrainous episodes in the past and has been following with a neurologist in [place] for this issue. He is no longer taking topiramate, however, due to some probable cognitive side effects he had been experiencing. He has not had a significant migrainous episode in quite some time, however. I do not think he needs to restart migraine preventive therapy acutely. He may follow-up with his usual neurologist for this issue. Of course, however, I am unable to completely exclude the possibility of a TIA localizing to the left cerebral hemisphere as an alternative explanation for his presentation. He does have some stroke risk factors including hypertension and hyperlipidemia. He is already on several antihypertensives and daily low-dose aspirin and should continue with these treatments. I do not see a compelling reason to switch from aspirin to clopidogrel at this time. Would consider obtaining 30-day mobile cardiac outpatient telemetry to exclude atrial fibrillation. Ok for for discharge (2) COVID-19: Asymptomatic, no fevers, no dyspnea, not on oxygen- - Continue supportive measures - CVA needs to be ruled in or out prior to adjusting his VTE hypercoagulability risk - CRP, Fibrinogen, Ferritin for morning lab - No oxygen at this time, self rotation. (3) HLD (hyperlipidemia): As above, continue pravastatin 40 mg (4) HTN (hypertension): Hold PO medications including metoprolol - allow permissive HTN (5) Stomach ulcer: Patient reports some naseem in the past in which he had a EGD done that did not report any active bleeding, but they are following 3 areas - He was to have a repeat EGD in the near future - Battles with some constipation and Nausea - Continue PPI and carfate (6) DVT prophylaxis: Heparin 5000 units q12 until CVA ruled out SCDs ambulate in room Total Time Total Time Spent Total Time Spent (In Minutes): 32 Total Time Includes: Examination of the Patient, Discharge Planning and Medication Reconciliation Discharge Plan Discharge Items Patient Disposition: Home - Self-Care Reason For Visit: CVA Discharge Diagnosis: MIGRAINE PREVENTION Activity: Resume your previous activity Non-emergency contact: Primary Care Provider Call non-emergency contact if: you have any medication questions Follow-up/Referrals: PCP,NO [Primary Care Provider] - Diet: Regular Addtl Attending Provider Instructions: You have been hospitalized for an acute medical problem. During your stay at [facility], we have made an effort to correct the problem that brought you to the hospital while keeping you as comfortable as possible. Medications were used to bring your condition under control and your discharge instructions will include directions for any medications you should take after leaving the hospital. Please make sure you see your Primary Care Provider as part of your follow up plan. Pending Studies at Discharge: No Stand-Alone Forms: My [facility] Launchups, Smoking Cessation Medications and DC Order Prescriptions: Continued losartan 50 mg Tablet 50 mg PO BID RF: 0 venlafaxine [Effexor XR] 75 mg Capsule,Extended Release 24hr 75 mg PO BID RF: 0 cyanocobalamin (vitamin B-12) [Vitamin B-12] 100 mcg Tablet 100 mcg PO PM RF: 0 pravastatin 40 mg Tablet 40 mg PO HS RF: 0 sucralfate [Carafate] 1 gram Tablet 1 g PO TIDM RF: 0 famotidine [Pepcid] 40 mg Tablet 40 mg PO HS RF: 0 prochlorperazine maleate [Compazine] 10 mg Tablet 10 mg PO TID PRN (Reason: Nausea) RF: 0 aspirin 81 mg Tablet,Delayed Release (Dr/Ec) 81 mg PO QAM RF: 0 amlodipine 10 mg Tablet 10 mg PO QAM RF: 0 pantoprazole 40 mg Tablet,Delayed Release (Dr/Ec) 40 mg PO BID RF: 0 diphenhydramine HCl [Benadryl] 25 mg Capsule 50 mg PO Q6H PRN (Reason: 1 hour before procedure) RF: 0 metoprolol succinate 25 mg Tablet Extended Release 24 Hr 25 mg PO BID RF: 0 ondansetron 4 mg Tablet,Disintegrating 4 mg PO Q6H PRN (Reason: Nausea) RF: 0 fluticasone propionate [Flonase Allergy Relief] 50 mcg/actuation [place],Suspension 2 spray INTRANASAL BID PRN (Reason: Allergy Symptoms) RF: 0 hyoscyamine sulfate 0.25 mg Tablet,Disintegrating 0.25 mg PO TID RF: 0 cholecalciferol (vitamin D3) 100 mcg (4,000 unit) Capsule 100 mcg PO PM RF: 0 One-A-Day Men's Complete 240 mcg-30 mcg- 300 mcg Tablet 1 tab PO PM RF: 0 Gi Cocktail 5 ml PO BID PRN (Reason: Abdominal Pain) RF: 0 Discharge Orders: Discharge Order (Routine); Ordered 11/01/20 Ordered By: Sumit Jean Admission Data Admit Date/Time: 10/31/20 13:33 Attending Provider: Sumit Jean Admit Provider: Nick Rothman Primary Care Provider: PCP,NO Other Providers: Trenton Roper Other Interventions: Discharge Summary Assessment (RN) Last Done: 11/01/20 13:33 Coding Level of Care Code 62911 OBS Care - Discharge Diagnoses Stroke I63.9 CVA mechanism: unspecified COVID-19 U07.1 HLD (hyperlipidemia) E78.5 Hyperlipidemia type: unspecified HTN (hypertension) I10 Hypertension type: unspecified Stomach ulcer K25.7 Gastric ulcer chronicity: chronic Gastric ulcer complication status: without hemorrhage or perforation DVT prophylaxis Z29.9
== END 2020-11-01 14:21 | disposition home or self-care (01) ==
LOC: ED 10:26 → SUATTDRO 13:33 → 2N 13:33 → INTOOBSV 13:33 → 2N 16:29